=== PATIENT | male | born 1985 | race Caucasian/White ===

== ENCOUNTER 2017-01-09 08:16 | Emergency (ER) | payer SELFPAY ==
[~2017-01-09] VITALS: Ht 188 cm; Wt 68.0 kg
--- NOTE | 2017-01-09 08:49 | PHYS DOC ---
Adult General Chief Complaint Chief Complaint: PSYCH EVALUATION [facility] HPI Patient is a 31 year old male with history of drug abuse who presents today complaining of anxiety and stress. Patient is an extremely poor historian. It took quite some time to even get any information from him, he is talking about other things than why he is in the hospital. He is denying any suicidal or homicidal ideations. He states he does "a little bit of everything" when asked if he does drugs or alcohol. He states he had Xanax from a friend today. 08:45 Mother in the ED. Mother states patient and are doing drugs and they are trying to find help for patient. Review of Systems Review of Systems Constitutional: Denies fever or chills [] Eyes: Denies change in visual acuity, redness, or eye pain [] HENT: Denies nasal congestion or sore throat [] Respiratory: Denies cough or shortness of breath [] Cardiovascular: No additional information not addressed in HPI [] GI: Denies abdominal pain, nausea, vomiting, bloody stools or diarrhea [] : Denies dysuria or hematuria [] Musculoskeletal: Denies back pain or joint pain [] Integument: Denies rash or skin lesions [] Neurologic: Denies headache, focal weakness or sensory changes [] Psych: anxiety and stress All other systems were reviewed and found to be within normal limits, except as documented in this note. Allergies Allergies Allergies Coded Allergies Type Severity Reaction Last Updated Verified No Known Drug Allergies 01/09/17 No Physical Exam Physical Exam Constitutional: Appears thin, non-toxic appearance. [] HENT: Normocephalic, atraumatic, bilateral external ears normal, oropharynx moist, no oral exudates, nose normal. [] Eyes: PERRLA, EOMI, conjunctiva normal, no discharge. [] Neck: Normal range of motion, no tenderness, supple, no stridor. [] Cardiovascular:Heart rate regular rhythm, no murmur [] Lungs & Thorax: Bilateral breath sounds clear to auscultation [] Abdomen: Bowel sounds normal, soft, no tenderness, no masses, no pulsatile masses. [] Skin: Warm, dry, no erythema, no rash. [] Back: No tenderness, no CVA tenderness. [] Extremities: No tenderness, no cyanosis, no clubbing, ROM intact, no edema. [] Neurologic: Alert and oriented X 3, normal motor function, normal sensory function, no focal deficits noted. [] Psychologic: Patient is restless and appears very anxious. He has multiple scarring on bilateral upper extremities suspicious of drug use. Current Patient Data Vital Signs Vital Signs Date Time Temp Pulse Resp B/P (MAP) Pulse Ox O2 Delivery O2 Flow Rate FiO2 01/09/17 08:38 97.6 87 20 132/92 (105) 96 Room Air 97.6 Lab Values Laboratory Tests Test 01/09/17 09:00 Urine Collection Type Unknown Urine Color Yellow Urine Clarity Clear Urine pH 6.0 Urine Specific [place] 1.015 Urine Protein Negative mg/dL (NEG-TRACE) Urine Glucose (UA) Negative mg/dL (NEG) Urine Ketones (Stick) Negative mg/dL (NEG) Urine Blood Negative (NEG) Urine Nitrite Negative (NEG) Urine Bilirubin Negative (NEG) Urine Urobilinogen Dipstick 1.0 mg/dL (0.2 mg/dL) Urine Leukocyte Esterase Negative (NEG) Urine RBC 0 /HPF (0-2) Urine WBC Occ /HPF (0-4) Urine Squamous Epithelial Cells None /LPF Urine Bacteria 0 /HPF (0-FEW) Urine Hyaline Casts Few /HPF Urine Mucus Slight /LPF Urine Opiates Screen Neg (NEG) Urine Methadone Screen Neg (NEG) Urine Barbiturates Neg (NEG) Urine Phencyclidine Screen Neg (NEG) Urine Amphetamine/Methamphetamine Neg (NEG) Urine Benzodiazepines Screen Neg (NEG) Urine Cocaine Screen Neg (NEG) Urine Cannabinoids Screen Neg (NEG) Urine Ethyl Alcohol Neg (NEG) EKG EKG [] Radiology/Procedures Radiology/Procedures [] Course & Med Decision Making Course & Med Decision Making Pertinent Labs and Imaging studies reviewed. (See chart for details) Patient is in the ED complaining of stress and anxiety. He is denying any suicidal homicidal ideation. Mother is in the ED stating patient and have been doing drugs for a while and they would like patient to get help. 08:52 spoke with [facility] PAT team he will come and talk to patient. Urine drug screen is negative, though patient appears very restless. [facility] from the PAT team came and talked to patient and parents, they agreed patient to be transferred to [facility], patient will be transported by father. Sanjuana Disclaimer Sanjuana Disclaimer This electronic medical record was generated, in whole or in part, using a voice recognition dictation system. Departure Departure Impression: Primary Impression: Anxiety Additional Impressions: Stress Drug abuse Disposition: 01 HOME, SELF-CARE Condition: STABLE Patient Instructions: Anxiety and Panic Attacks, Drug Abuse, FAQs Additional Instructions: You will be taken to [facility] by your father for father for help. Problem Qualifiers MANDY SCHULER APRN Jan 09, 2017 08:49
[2017-01-09 09:14] LABS: BILIRUBIN,URINE NEGATIVE (NEG); GLUCOSE,URINE NEGATIVE (NEG); NITRITE,URINE NEGATIVE (NEG); PROTEIN,URINE NEGATIVE (NEG-TRACE)
[2017-01-09 09:31] LABS: BACTERIA,URINE 0 /HPF (0-FEW); RBC,URINE 0 /HPF (0-2); WBC,URINE OCC /HPF (0-4)
[2017-01-09 09:42] LABS: BARBITURATES NEG (NEG); BENZODIAZEPINES NEG (NEG); CANNABINOIDS NEG (NEG); COCAINE NEG (NEG); METHADONE NEG (NEG); OPIATES NEG (NEG); PHENCYCLIDINE NEG (NEG)
[2017-01-09 11:04] VITALS: BP 105/78
== END 2017-01-09 11:52 | disposition home or self-care (01) ==
LOC: ER 08:16
DX: F41.9 Anxiety disorder, unspecified (principal); F43.9 Reaction to severe stress, unspecified; F19.10 Other psychoactive substance abuse, uncomplicated
CPT/HCPCS: 80307; 81001; 99284; G0479